=== PATIENT | male | born 1995 | race Caucasian/White ===

== ENCOUNTER 2021-10-28 01:56 | Emergency (ER) | payer OTHER ==
[~2021-10-28] VITALS: Ht 190.5 cm; Wt 132.0 kg
[2021-10-28] MEDS ORDERED: LOMOTIL TABLET1 EACH PO (02:43)
== END 2021-10-28 03:20 | disposition home or self-care (01) ==
LOC: ED 01:56
DX: K52.9 Noninfective gastroenteritis and colitis, unspecified (principal)
CPT/HCPCS: 80048; 81001; 85025; 96374; 99284-25; A9270; J2405; J7030